=== PATIENT | male | born 1970 | race Caucasian/White ===

== ENCOUNTER 2017-09-06 06:51 | Day surgery (SDC) | payer OTHER ==
[2017-09-06] MEDS ORDERED: MORPHINE SULFATE 4 MG/ML DISP.SYRIN. IV (07:00)
[2017-09-06] MEDS ORDERED: fentaNYL PF VIAL 100 MCG/2 ML VIAL IV (07:00)
[2017-09-06] MEDS ORDERED: PROCHLORPERAZINE 10 MG/2 ML VIAL. IV (07:00)
[2017-09-06] MEDS ORDERED: ONDANSETRON PF 4 MG/2 ML VIAL. IV (07:00)
[2017-09-06] MEDS: IV RINGERS,LACTATED 1000ML 1,000 ML IV (07:59)
[2017-09-06] MEDS: LIDOCAINE 1% PF 2 ML VIAL. ID (07:59)
[2017-09-06 08:00] LABS: BACTERIA,URINE FEW /HPF (0-FEW); BILIRUBIN,URINE NEGATIVE (NEG); CLARITY,URINE CLEAR; COLOR,URINE YELLOW; GLUCOSE,URINE NEGATIVE (NEG); NITRITE,URINE NEGATIVE (NEG); PROTEIN,URINE NEGATIVE (NEG-TRACE); RBC,URINE RARE /HPF (0-2); UROBILINOGEN,URINE 0.2 mg/dL (0.2 mg/dL); WBC,URINE RARE /HPF (0-4)
[2017-09-06 08:01] LABS: SQUAMOUS EPITHELIAL CELL,UR FEW /LPF
[2017-09-06 08:22] LABS: PARTIAL THROMBOPLASTIN TIME 28 SEC (24-38)
[2017-09-06] MEDS ORDERED: KETOROLAC 30 MG/ML INJ FOR OR. INJ (08:31)
[2017-09-06] MEDS ORDERED: DEXAMETHASONE SOD PHOS 20 MG/5 ML VIAL. (08:31)
[2017-09-06] MEDS ORDERED: PROPOFOL 20 ML IV (08:31)
[2017-09-06] MEDS ORDERED: SEVOFLURANE 61 TO 120 MINUTES. IH (08:31)
[2017-09-06] MEDS ORDERED: fentaNYL PF VIAL 100 MCG/2 ML VIAL (08:31)
[2017-09-06] MEDS ORDERED: ONDANSETRON PF 4 MG/2 ML VIAL. (08:31)
[2017-09-06] MEDS ORDERED: MIDAZOLAM HCL/PF 2 MG/2 ML VIAL. (08:31)
[2017-09-06] MEDS ORDERED: LIDOCAINE 2% PF Vial for OR 5 ML VIAL. (08:31)
[2017-09-06] MEDS ORDERED: PHENYLEPHRINE in 0.9% NACL PF 1 MG/10 ML SYRINGE. IV (08:32)
[2017-09-06] MEDS: CLINDAMYCIN 900MG PREMIX 50 ML IV (09:23)
[2017-09-06] MEDS: BUPIVACAINE-EPI 0.25%-1:200000 50 ML VIAL. (09:50)
[2017-09-06] MEDS: EPINEPHrine VIAL 30 MG/30 ML VIAL (09:54)
[2017-09-06] MEDS: fentaNYL PF VIAL 100 MCG/2 ML VIAL IV ×2 (10:55→11:04)
[2017-09-06] MEDS: HYDROcodone/APAP 7.5/325MG 1 TAB TABLET PO ×2 (11:22→11:40)
== END 2017-09-06 12:45 | disposition home or self-care (01) ==
LOC: SURG 06:51
DX: S83.241A Other tear of medial meniscus, current injury, right knee, initial encounter (principal); S83.281A Other tear of lateral meniscus, current injury, right knee, initial encounter; M22.41 Chondromalacia patellae, right knee; I10 Essential (primary) hypertension; I25.10 Atherosclerotic heart disease of native coronary artery without angina pectoris; Z95.0 Presence of cardiac pacemaker; F32.9 Major depressive disorder, single episode, unspecified; Z85.828 Personal history of other malignant neoplasm of skin; Z98.890 Other specified postprocedural states; Z98.52 Vasectomy status; Z82.49 Family history of ischemic heart disease and other diseases of the circulatory system; F17.210 Nicotine dependence, cigarettes, uncomplicated; Z72.89 Other problems related to lifestyle; Z79.2 Long term (current) use of antibiotics; Z79.899 Other long term (current) drug therapy; Z88.0 Allergy status to penicillin; Z88.8 Allergy status to other drugs, medicaments and biological substances; Z98.41 Cataract extraction status, right eye; Z98.42 Cataract extraction status, left eye; E78.00 Pure hypercholesterolemia, unspecified; G47.33 Obstructive sleep apnea (adult) (pediatric); E66.9 Obesity, unspecified; Z68.39 Body mass index [BMI] 39.0-39.9, adult; M17.11 Unilateral primary osteoarthritis, right knee; M19.041 Primary osteoarthritis, right hand; F41.9 Anxiety disorder, unspecified; Z79.01 Long term (current) use of anticoagulants; X58.XXXA Exposure to other specified factors, initial encounter; Y93.89 Activity, other specified; Y92.89 Other specified places as the place of occurrence of the external cause; Y99.8 Other external cause status
CPT/HCPCS: 29880; 36415; 81001; 85730; A7015; J0171; J1100; J1885; J2250; J2370; J2405; J2704; J3010; J3490; J7120

== ENCOUNTER → 2017-09-19 | Outpatient (CLI) | payer OTHER | END | disposition home or self-care (01) | LOC: US 16:59 | DX: M79.604 Pain in right leg (principal) | CPT/HCPCS: 93971 ==